=== PATIENT | female | born 1965 | race Caucasian/White ===

== ENCOUNTER 2017-08-13 19:02 | Emergency (ER) | payer OTHER ==
[~2017-08-13] VITALS: Ht 170.1 cm; Wt 68.0 kg
[~2017-08-13 19:02] MED LIST: ACYCLOVIR800 MG PO; ALEVE220 MG PO; ANAPROX DS550 MG PO; BACTRIM DS 8001 TA1 PO; BIAXIN500 MG PO; CIPRODEX 0.3%-7.5 ML OT; CLARITIN10 MG PO; DAYPRO600 M1 PO; DIFLUCAN150 MG PO; IBU800 MG PO; MOTRIN800 MG PO; NKHM; OMEPRAZOLE40 MG PO; PEN-VEE K500 MG PO; PERCOCET 325 MG1 TA2 PO; PERCOCET 325 MG1 TA7 PO; TRAMADOL HCL50 MG PO; TRIMOX500 MG PO; TYLENOL325 M1 PO; VIBRAMYCIN100 MG PO; VICODIN ES 7501 TAB PO; ZOFRAN8 MG PO
[2017-08-13] MEDS ORDERED: CLINDAMYCIN HC300 MG PO (19:34)
== END 2017-08-13 19:38 | disposition home or self-care (01) ==
LOC: ED 19:02
DX: K02.9 Dental caries, unspecified (principal); L02.01 Cutaneous abscess of face

== ENCOUNTER 2021-01-13 14:44 | Emergency (ER) | payer OTHER ==
[~2021-01-13] VITALS: Ht 157.4 cm; Wt 77.1 kg
[~2021-01-13 14:44] MED LIST changes: +CLINDAMYCIN HC300 MG PO; +KENALOG 0.1%80 GM T; +MEDROL DOSEPAK4 MG PO
[2021-01-13] MEDS ORDERED: CLINDAMYCIN HC300 MG PO (15:18)
== END 2021-01-13 15:24 | disposition home or self-care (01) ==
LOC: ED 14:44
DX: K08.89 Other specified disorders of teeth and supporting structures (principal); Z79.899 Other long term (current) drug therapy; Z90.711 Acquired absence of uterus with remaining cervical stump; Z98.51 Tubal ligation status

== ENCOUNTER 2022-10-19 16:03 | Inpatient (IN) | payer OTHER ==
[~2022-10-19] VITALS: Ht 157.4 cm; Wt 81.6 kg
[2022-10-19 17:55] VITALS: BP 169/89
[2022-10-19 22:00] VITALS: BP 155/89
[2022-10-20 00:28] LABS: BASO % 0.3 % (0.0-1.0); EOS # 0.1 10*3/uL (0.0-0.4); EOS % 1.1 % (1.0-4.0); HEMATOCRIT 41.5 % (37.0-47.0); LYMPH # 1.8 10*3/uL (1.3-4.4); LYMPH % 20.2 % (27.0-41.0); MEAN CELL VOLUME 88.5 fl (81.0-99.0); MEAN CORPUSCULAR HGB 28.6 pg (27.0-31.0); MEAN CORPUSCULAR HGB CONC 32.3 g/dl (33.0-37.0); MEAN PLATELET VOLUME 10.6 fl (9.6-12.3); MONO # 0.6 10*3/uL (0.1-1.0); MONO % 6.3 % (3.0-9.0); NEUT # 6.3 10*3/uL (2.3-7.9); NEUT % 71.9 % (47.0-73.0); PLATELET COUNT AUTOMATED 213 10*3/uL (130-400); RED BLOOD COUNT 4.69 10*6/uL (4.10-5.10); RED CELL DISTRI WIDTH 13.4 % (0-14.5); WHITE BLOOD COUNT 8.8 10*3/uL (4.8-10.8)
[2022-10-20 00:42] LABS: ALKALINE PHOSPHATASE 51 U/L (46-116); BUN 6 mg/dl (9-23); CHLORIDE 104 mmol/L (98-107); CREATININE 0.54 mg/dL (0.55-1.02); POTASSIUM 3.4 mmol/L (3.4-5.1); SGPT/ALT 16 U/L (10-49); SODIUM 140 mmol/L (136-145); TOTAL PROTEIN 7.2 gm/dL (6.0-8.0)
[2022-10-20 02:00] VITALS: BP 111/78; BP 151/85
[2022-10-20 05:55] VITALS: BP 97/53
[2022-10-20 06:50] LABS: BASO % 0.3 % (0.0-1.0); EOS # 0.1 10*3/uL (0.0-0.4); EOS % 1.4 % (1.0-4.0); HEMATOCRIT 40.3 % (37.0-47.0); LYMPH % 27.8 % (27.0-41.0); MEAN CELL VOLUME 88.2 fl (81.0-99.0); MEAN CORPUSCULAR HGB 29.5 pg (27.0-31.0); MEAN CORPUSCULAR HGB CONC 33.5 g/dl (33.0-37.0); MEAN PLATELET VOLUME 10.7 fl (9.6-12.3); MONO # 0.6 10*3/uL (0.1-1.0); MONO % 7.5 % (3.0-9.0); NEUT # 4.6 10*3/uL (2.3-7.9); NEUT % 62.7 % (47.0-73.0); PLATELET COUNT AUTOMATED 196 10*3/uL (130-400); RED BLOOD COUNT 4.57 10*6/uL (4.10-5.10); RED CELL DISTRI WIDTH 13.4 % (0-14.5); WHITE BLOOD COUNT 7.3 10*3/uL (4.8-10.8)
[2022-10-20 07:26] LABS: ALKALINE PHOSPHATASE 51 U/L (46-116); BUN 6 mg/dl (9-23); CHLORIDE 103 mmol/L (98-107); CHOLESTEROL 142 mg/dL (<200); CREATININE 0.56 mg/dL (0.55-1.02); FREE T4 0.94 ng/dl (0.89-1.76); LDL CHOLESTEROL 79 mg/dL (9-159); POTASSIUM 3.6 mmol/L (3.4-5.1); SGPT/ALT 14 U/L (10-49); SODIUM 140 mmol/L (136-145); TOTAL PROTEIN 6.9 gm/dL (6.0-8.0); TRIGLYCERIDES 57 mg/dl (<150)
[2022-10-20 07:51] LABS: VITAMIN D, 25-HYDROXY 16.8 ng/mL (30-100)
[2022-10-20] MEDS ORDERED: AMOX-CLAV 875-1 EACH PO (11:47)
[2022-10-20] MEDS ORDERED: VITAMIN D3125 MC1 PO (11:47)
== END 2022-10-20 14:24 | disposition home or self-care (01) | DRG 159 ==
LOC: ED 16:03 → EDHOLD 10-20 00:09
PROVIDERS: Emergency Medicine; Internal Medicine; ADMIT Family Medicine; ATTEND Family Medicine
DX: K05.219 Aggressive periodontitis, localized, unspecified severity (principal); S09.93XA Unspecified injury of face, initial encounter; E66.09 Other obesity due to excess calories; M19.90 Unspecified osteoarthritis, unspecified site; R73.9 Hyperglycemia, unspecified; E55.9 Vitamin D deficiency, unspecified; V89.2XXA Person injured in unspecified motor-vehicle accident, traffic, initial encounter; Z90.710 Acquired absence of both cervix and uterus; Z98.51 Tubal ligation status; Z82.49 Family history of ischemic heart disease and other diseases of the circulatory system; Z80.41 Family history of malignant neoplasm of ovary; Z80.0 Family history of malignant neoplasm of digestive organs; V29.888A Rider (driver) (passenger) of other motorcycle injured in other specified transport accidents, initial encounter; Y93.89 Activity, other specified; Y92.89 Other specified places as the place of occurrence of the external cause; Y99.8 Other external cause status; Z68.33 Body mass index [BMI] 33.0-33.9, adult

== ENCOUNTER 2023-03-17 19:15 | Emergency (ER) | payer OTHER ==
[~2023-03-17] VITALS: Ht 157.4 cm; Wt 81.6 kg
[~2023-03-17 19:15] MED LIST changes: +AMOX-CLAV 875-1 EACH PO; +VITAMIN D3125 MC1 PO
[2023-03-17] MEDS ORDERED: AMOX-CLAV 875-1 EACH PO (19:50)
[2023-03-17] MEDS ORDERED: IBUPROFEN600 MG PO (19:50)
== END 2023-03-17 21:16 | disposition home or self-care (01) ==
LOC: ED 19:15
DX: S41.112A Laceration without foreign body of left upper arm, initial encounter (principal); M19.90 Unspecified osteoarthritis, unspecified site; Z90.710 Acquired absence of both cervix and uterus; Z98.890 Other specified postprocedural states; Z98.51 Tubal ligation status; W54.0XXA Bitten by dog, initial encounter; Y93.89 Activity, other specified; Y92.89 Other specified places as the place of occurrence of the external cause; Y99.8 Other external cause status

== ENCOUNTER 2023-03-20 21:01 | Emergency (ER) | payer OTHER ==
[~2023-03-20] VITALS: Ht 157.4 cm; Wt 83.9 kg
[~2023-03-20 21:01] MED LIST changes: +IBUPROFEN600 MG PO
== END 2023-03-20 22:44 | disposition home or self-care (01) ==
LOC: ED 21:01
DX: Z23 Encounter for immunization (principal); Z90.710 Acquired absence of both cervix and uterus; Z98.51 Tubal ligation status

== ENCOUNTER 2023-03-24 15:22 | Emergency (ER) | payer OTHER | END 2023-03-24 16:05 | disposition home or self-care (01) | LOC: ED 15:22 | DX: Z23 Encounter for immunization (principal); Z90.710 Acquired absence of both cervix and uterus; Z98.51 Tubal ligation status ==

== ENCOUNTER 2023-03-31 12:18 | Emergency (ER) | payer OTHER | END 2023-03-31 13:03 | disposition home or self-care (01) | LOC: ED 12:18 | DX: T14.8XXD Other injury of unspecified body region, subsequent encounter (principal); Z90.710 Acquired absence of both cervix and uterus; Z98.51 Tubal ligation status; Z98.890 Other specified postprocedural states; W54.0XXD Bitten by dog, subsequent encounter ==

== ENCOUNTER → 2023-04-10 | Outpatient (CLI) | payer OTHER ==
[2023-04-10 12:55] LABS: BASO % 0.4 % (0.0-1.0); EOS # 0.2 10*3/uL (0.0-0.4); LYMPH # 1.5 10*3/uL (1.3-4.4); LYMPH % 28.6 % (27.0-41.0); MEAN CELL VOLUME 90.5 fl (81.0-99.0); MEAN CORPUSCULAR HGB 28.8 pg (27.0-31.0); MEAN CORPUSCULAR HGB CONC 31.8 g/dl (33.0-37.0); MEAN PLATELET VOLUME 10.6 fl (9.6-12.3); MONO # 0.3 10*3/uL (0.1-1.0); NEUT # 3.2 10*3/uL (2.3-7.9); NEUT % 60.8 % (47.0-73.0); PLATELET COUNT AUTOMATED 191 10*3/uL (130-400); RED CELL DISTRI WIDTH 13.9 % (0-14.5); WHITE BLOOD COUNT 5.3 10*3/uL (4.8-10.8)
[2023-04-10 13:25] LABS: ALKALINE PHOSPHATASE 53 U/L (46-116); BUN 10 mg/dl (9-23); CHLORIDE 104 mmol/L (98-107); CHOLESTEROL 178 mg/dL (<200); LDL CHOLESTEROL 101 mg/dL (9-159); SGPT/ALT 17 U/L (10-49); THYROID STIM HORMONE (HS) 1.953 uIU/ml (0.550-4.780); TRIGLYCERIDES 88 mg/dl (<150)
[2023-04-11 08:10] LABS: HBSAG Negative (Negative); HEP B CORE AB, IGM Negative (Negative); HEPATITIS C ANTIBODY Non Reactive (Non Reactive)
== END | disposition home or self-care (01) ==
LOC: LAB 12:24
PROVIDERS: ATTEND Nurse Practitioner Family
DX: S41.112D Laceration without foreign body of left upper arm, subsequent encounter (principal); F19.11 Other psychoactive substance abuse, in remission; Z82.49 Family history of ischemic heart disease and other diseases of the circulatory system; Z79.899 Other long term (current) drug therapy; X58.XXXD Exposure to other specified factors, subsequent encounter

== ENCOUNTER → 2023-04-24 | Day surgery (SDC) | payer OTHER ==
[~2023-04-24] VITALS: Ht 157.4 cm; Wt 68.0 kg
[~2023-04-24] MED LIST changes: +SUBOXONE 12 MG1 EACH PO
[2023-04-24 08:16] VITALS: BP 113/75
[2023-04-24 08:35] VITALS: BP 101/60
[2023-04-24 08:50] VITALS: BP 90/69
[2023-04-24 09:05] VITALS: BP 108/66
== END ==
LOC: SDC 04-20 11:00
PROVIDERS: ATTEND Surgery
DX: Z12.11 Encounter for screening for malignant neoplasm of colon (principal); M17.11 Unilateral primary osteoarthritis, right knee; Z79.899 Other long term (current) drug therapy; Z98.51 Tubal ligation status; Z90.710 Acquired absence of both cervix and uterus; Z98.890 Other specified postprocedural states

== ENCOUNTER 2024-06-21 09:49 | Emergency (ER) | payer OTHER ==
[~2024-06-21] VITALS: Ht 157.4 cm; Wt 77.1 kg
[2024-06-21] MEDS ORDERED: AVPAK AZITHROM250 M1 PO (10:51)
== END 2024-06-21 11:05 | disposition home or self-care (01) ==
LOC: ED 09:49
DX: J32.9 Chronic sinusitis, unspecified (principal); Z20.822 Contact with and (suspected) exposure to COVID-19; I10 Essential (primary) hypertension; M19.90 Unspecified osteoarthritis, unspecified site; Z90.710 Acquired absence of both cervix and uterus; Z98.51 Tubal ligation status; Z98.890 Other specified postprocedural states